=== PATIENT | male | born 1995 | race Caucasian/White ===

== ENCOUNTER → 2023-04-30 08:46 | Outpatient (CLI) | payer OTHER, SELFPAY ==
--- NOTE | ~2023-04-30 | XR_ITS ---
XR scapula LT DATE: 04/30/2023 09:04 INDICATION: Left shoulder pain TECHNIQUE: 2 views COMPARISON: None FINDINGS: Normal alignment at the acromioclavicular and glenohumeral joints. No fracture or dislocati on or bone destruction of the left scapula is detected. IMPRESSION: Negative Reviewed, dictated and finalized at location B. ENT SUPPORT REPRESENTATIVE IMPRESSION: Negative
== END ==
PROVIDERS: PCP Family Medicine; Visit Provider Family Medicine
DX: M25.512 Pain in left shoulder (principal)
CPT/HCPCS: 73010